=== PATIENT | male | born 1950 | race Caucasian/White ===

== ENCOUNTER 2020-05-28 03:30 | Observation (INO) ==
[2020-05-28] MEDS ORDERED: Naloxone 0.4 MG/ML INJ IVP PRN (07:48)
[2020-05-28] MEDS: Ondansetron 4 MG/2 ML VIAL IVP PRN (09:23)
[2020-05-28] MEDS ORDERED: Albuterol 2.5 MG/3 ML NEBULIZER IH PRN (11:41)
[2020-05-28] MEDS ORDERED: Albuterol 2.5 MG/3 ML NEBULIZER ONE (11:45)
[2020-05-28] MEDS: Albuterol 2.5 MG/3 ML NEBULIZER IH SCH ×4 (11:49→23:55)
[2020-05-28] MEDS: Ringers Solution, Lactated 1,000 ML IVC SCH (12:34)
[2020-05-28] MEDS: *HR* Promethazine 25 MG/ML VIAL IVP PRN ×2 (13:00→17:33)
[2020-05-28] MEDS: *HR* Heparin 5,000 UNIT/ML VIAL SQ SCH (17:28)
[2020-05-29] MEDS ORDERED: 0.9 % Sodium Chloride 500 ML IVC ONE (00:15)
[2020-05-29 00:39] LABS: Basophils % 0.2 %; Hematocrit 41.8 % (37.5-50.1); Immature Granulocytes % 1.1 % (0-4); Lymphocytes # 0.7 K/mcL (0.6-4.6); Lymphocytes % 2.8 %; Mean Corpuscular HGB Conc 31.1 g/dL (31.6-35.5); Mean Corpuscular Hemoglobin 26.4 pg (28.0-33.3); Mean Platelet Volume 9.9 fL (9.4-12.4); Monocytes # 1.7 K/mcL (0.0-1.3); Monocytes % 6.6 %; Neutrophils # 22.3 K/mcL (1.6-8.9); Platelet Count 255 K/mcL (140-400); Red Blood Count 4.92 M/mcL (4.19-5.50); Red Cell Distribution Width 15.3 % (11.5-14.5); Segmented Neutrophils % 89.3 %
[2020-05-29 00:40] LABS: Basophils # 0.1 K/mcL (0.0-0.2)
[2020-05-29 00:53] LABS: BUN/Creatinine Ratio 29 (6-26); Blood Urea Nitrogen 35 mg/dL (8-23); Calcium 8.6 mg/dL (8.6-10.3); Carbon Dioxide 32 mEq/L (23-29); Chloride 90 mEq/L (98-107); Glucose 149 mg/dL (70-105); Osmolality,Calculated 285 (280-300); Potassium 4.3 mEq/L (3.5-5.1); Sodium 132 mEq/L (136-145); eGFR For African Americans > 60 (> 60); eGFR For Non-African Americans 59 (> 60)
[2020-05-29 01:08] LABS: Platelet Estimate Normal (Normal)
[2020-05-29] MEDS: *HR* Promethazine 25 MG/ML VIAL IVP PRN ×2 (02:20→08:14)
[2020-05-29] MEDS: Ringers Solution, Lactated 1,000 ML IVC SCH (02:21)
[2020-05-29] MEDS ORDERED: *HR* Metoprolol 5 MG/5 ML VIAL IVP PRN (03:07)
[2020-05-29] MEDS: Albuterol 2.5 MG/3 ML NEBULIZER IH SCH (04:01)
[2020-05-29] MEDS: *HR* Heparin 5,000 UNIT/ML VIAL SQ SCH (06:06)
[2020-05-29] MEDS ORDERED: Perflutren Lipid Microsphere 1.3 ML in 0.9 % Sodium Chloride 8.7 ML IVP PRN (07:25)
[2020-05-29] MEDS ORDERED: Piperacillin/Tazobactam 3.375 GM in 0.9 % Sodium Chloride Mini Bag 100 ML IVPB SCH (08:00)
[2020-05-29] MEDS: Ondansetron 4 MG/2 ML VIAL IVP PRN (08:14)
[2020-05-29] MEDS ORDERED: *HR* Metoprolol 5 MG/5 ML VIAL IVP SCH (09:00)
[2020-05-29] MEDS: Budesonide Neb 0.5 MG/2 ML IH SCH ×2 (10:36→11:19)
[2020-05-29] MEDS: Levalbuterol Neb 1.25 MG/3 ML IH SCH ×2 (10:36→11:18)
[2020-05-29] MEDS ORDERED: 0.9 % Sodium Chloride 1,000 ML IVC SCH (11:30)
[2020-05-29] MEDS ORDERED: Vasopressin 40 UNIT in D5% in Water 100 ML IVC SCH (13:00)
[2020-05-29 13:04] VITALS: BP 75/50
[2020-05-29] MEDS ORDERED: *HR* EPINEPHrine 1 MG/10 ML SYRINGE IVP ONE ×2 (13:04)
[2020-05-29] MEDS ORDERED: Norepinephrine 4 MG/254 ML IV.SOLN IVC ONE (13:04)
[2020-05-29] MEDS ORDERED: *HR* Atropine Sulfate 1 MG/10 ML SYRINGE IV ONE (13:04)
== END 2020-05-29 13:05 | disposition expired ==
LOC: 3ANU → SUATTDRO 06:52 → ICNU 05-29 12:14
PROVIDERS: ADMIT Internal Medicine; ATTEND Internal Medicine